=== PATIENT | male | born 2000 | race Hispanic/Latino ===

== ENCOUNTER 2023-06-13 14:20 | Emergency (ER) | payer SELFPAY ==
[2023-06-13] MEDS ORDERED: Acetaminophen 500 MG TAB ONE (14:28)
[2023-06-13] MEDS ORDERED: Ondansetron ODT 4 MG TAB ONE (14:29)
[2023-06-13] MEDS ORDERED: Ibuprofen 200 MG TAB ONE (15:21)
== END 2023-06-13 15:25 | disposition home or self-care (01) ==
LOC: NAV ERS 14:20
DX: B34.9 Viral infection, unspecified (principal)
CPT/HCPCS: 87635; 87804; 99284; Q0162

== ENCOUNTER 2023-12-09 14:36 | Emergency (ER) | payer OTHER, SELFPAY | END 2023-12-09 15:34 | disposition home or self-care (01) | LOC: NAV ERS 14:36 | DX: S93.401A Sprain of unspecified ligament of right ankle, initial encounter (principal); F17.290 Nicotine dependence, other tobacco product, uncomplicated; W10.9XXA Fall (on) (from) unspecified stairs and steps, initial encounter ==